=== PATIENT | male | born 1975 | race American Indian/Alaskan Native ===

== ENCOUNTER 2019-01-12 08:26 | Emergency (ER) | payer OTHER ==
[2019-01-12 09:29] LABS: Hematocrit 39.2 % (35.5-45.6); Hemoglobin 13.2 gm/dl (11.8-15.2); Mean Corpuscular HGB Conc 34 % (32-34); Mean Corpuscular Volume 88 fl (84-94); Platelet Count 247 K/mm3 (140-440); Red Blood Count 4.46 M/mm3 (3.65-5.03); Red Cell Distribution Width 14.5 % (13.2-15.2)
--- NOTE | 2019-01-12 09:41 | XRay Report ---
EXAM: XR CHEST 1V AP HISTORY: Chest Pain TECHNIQUE: AP CXR dated 01/12/2019 at 9:02 AM. COMPARISON: None available. FINDINGS: The heart size and mediastinum are within normal limits. The lung eaton and costophrenic angles are clear. There is no acute parenchymal infiltrate, pleural effusion, or pneumothorax seen. The visua lized bony structures are within normal limits. IMPRESSION: 1. No evidence for acute cardiopulmonary disease seen. This document is electronically signed by Katarzyna Ortiz MD., January 12 2019 09:39:22 AM ET
[2019-01-12 09:47] LABS: BUN/Creatinine Ratio 10; Blood Urea Nitrogen 24 mg/dL (9-20); Calcium 9.5 mg/dL (8.4-10.2); Hemolysis Index 9
[2019-01-12] MEDS ORDERED: SUBLIMAZE IV ONE (10:22)
[2019-01-12] MEDS ORDERED: ZOFRAN IV ONE (10:22)
[2019-01-12] MEDS ORDERED: NITRO-BID 2% TP ONE (10:22)
--- NOTE | 2019-01-12 10:28 | Emergency Department Report ---
HPI - General Chief Complaint: Chest Pain Time Seen by Provider: 01/12/19 10:09 - HPI HPI: Room 22 The patient is a 43-year-old male presenting with a chief complaint of chest pain headache and abdominal pain. The patient states he said chest pain is de scribed as sharp and constant in nature for approximately 1 week. Patient states he gets short of breath, diaphoretic expanse is nausea vomiting with this chest pain. The patient currently gets his chest pain score 10/10. Patient also complains of a diffuse headache for the past 3 days. Patient denies preceding trauma. Patient also complains of right upper quadrant abdominal pain for approximately 1 year. The patient has a history of alcoholism going through approximately 15-18 beers daily. Patient last consumed alcohol 3 days ago. The patient has a history of hypertension but has not been on medication for several years. The patient states he's never had a stress test or cardiac ca theterization Location: [See above] Duration: [See above] Quality: Sharp Severity: 10/10 Modifying factors: [see above] Context: [see above] Mode of transportation: [not driving] ED Past Medical Hx - Past Medical History Hx Hypertension: Yes - Surgical History Past Surgical History?: No - Family History Family history: no significant - Social History Smoking Status: Current Every Day Smoker (1/4 pack per day) Substance Use Type: None, Alcohol (15-18 beers daily) ED Review of Systems ROS: Stated complaint: CHEST PAIN/HEADACHE/HBP Other details as noted in HPI Constitutional: diaphoresis Eyes: denies: eye pain ENT: denies: throat pain Respiratory: shortness of breath Cardiovascular: chest pain Endocrine: no symptoms reported Gastrointestinal: abdominal pain, nausea, vomiting Genitourinary: denies: dysuria Musculoskeletal: denies: back pain Neurological: headache Physical Exam - Physical Exam Vital Signs: Vital Signs 01/12/19 08:34 Temperature 97.1 F L Pulse Rate 92 H Respiratory 18 Rate Blood Pressure 133/80 [Right] O2 Sat by Pulse 98 Oximetry Physical Exam: GENERAL: The patient is well-developed well-nourished male lying on stretcher not appearing to be in acute distress. [] HEENT: Normocephalic. Atraumatic. Extraocular motions are intact. Patient has moist mucous membranes. NECK: Supple. No meningitic signs are noted. Trachea midline CHEST/LUNGS: Clear to auscultation. There is no respiratory distress noted. HEART/CARDIOVASCULAR: Regular. There is no tachycardia. There is a 4/6 systolic murmur. ABDOMEN: Abdomen is soft, but diffusely tender. Patient has normal bowel sounds. There is no abdominal distention. SKIN: There is no rash. There is no edema. There is no diaphoresis. NEURO: The patient is awake, alert, and oriented. The patient is cooperative. The patient has no focal neurologic deficits. The patient has normal speech. Cranial nerves II through XII grossly intact, no drift MUSCULOSKELETAL: There is no evidence of acute injury. ED Course Vital Signs 01/12/19 08:34 Temperature 97.1 F L Pulse Rate 92 H Respiratory 18 Rate Blood Pressure 133/80 [Right] O2 Sat by Pulse 98 Oximetry ED Medical Decision Making - Lab Data Result diagrams: 01/12/19 09:10 01/12/19 09:10 Laboratory Tests 01/12/19 01/12/19 01/12/19 09:10 09:10 09:10 WBC 5.6 RBC 4.46 Hgb 13.2 Hct 39.2 MCV 88 MCH 30 MCHC 34 RDW 14.5 Plt Count 247 [place] % ([employer]) [employer] Flatbed Sodium 140 Potassium 3.2 L Chloride 95.7 L Carbon Dioxide 28 Anion Gap 20 BUN 24 H Creatinine 2.3 H Estimated GFR 37 BUN/Creatinine Ratio 10 Glucose 102 H Calcium 9.5 Total Bilirubin 0.80 AST 49 H ALT 36 Alkaline Phosphatase 75 Troponin T < 0.010 Total Protein 8.2 Albumin 4.7 Albumin/Globulin Ratio 1.3 - EKG Data -: EKG Interpreted by Me EKG shows normal: sinus rhythm Rate: normal - EKG Data When compared to previous EKG there are: previous EKG unavailable Interpretation: nonspecific ST-T wave mary - Radiology Data Radiology results: report reviewed (chest x-ray, CT head, CT abdomen and pelvis), image reviewed (chest x-ray, CT head, CT abdomen and pelvis) interpreted by me: Chest x-ray-no focal infiltrates, no pneumothorax Findings [facility] [address] [place] [address] XRay Report Signed Patient: LILIANE COLE MR# : [id number] : 1975 Acct:[id number] Age/Sex: 43 / M ADM Date: 01/12/19 Loc: ED Attending Dr: Ordering Physician: DARIUS JOHNSON MD Date of Service: 01/12/19 Procedure(s): XR chest 1V ap Accession Number(s): [id number] cc: DARIUS JOHNSON MD Fluoro Time In Minutes: EXAM: XR CHEST 1V AP HISTORY: Chest Pain TECHNIQUE: AP CXR dated 01/12/2019 at 9:02 AM. COMPARISON: None available. FINDINGS: The heart size and mediastinum are within normal limits. The lung eaton and costophrenic angles are clear. There is no acute parenchymal infiltrate, pleural effusion, or pneumothorax seen. The visualized bony structures are within normal limits. IMPRESSION: 1. No evidence for acute cardiopulmonary disease seen. This document is electronically signed by Noah Mccarthy MD., January 12 2019 09:39:22 AM ET Transcribed By: [facility] Dictated By: NOAH MCCARTHY Electronically Authenticated By: NOHA MCCARTHY Signed Date/Time: 01/12/19941 DD/ 6 TD/TT: 01/12/19906 Findings [facility] [address] [place] [address] Cat Scan Report Signed Patient: LILIANE COLE MR# : [id number] : 1975 Acct:[id number] Age/Sex: 43 / M ADM Date: 01/12/19 Loc: ED Attending Dr: Ordering Physician: ANDRIA GARY MD Date of Service: 01/12/19 Procedure(s): CT head/brain wo con Accession Number(s): [id number] cc: ANDRIA GARY MD PROCEDURE: CT HEAD/BRAIN WO CON TECHNIQUE: CT of the head was performed without intravenous contrast. HISTORY: headache COMPARISONS: None FINDINGS: The ventricles are normal in position and shape. The ventricles are nondilated. No intracranial hemorrhage, mass, mass effect or evidence of acute ischemic infarct. The basilar cisterns are patent. There is mild mucosal thickening of the maxillary sinuses. The mastoid air cells are clear. The orbits are intact. The calvarium is intact. No extracranial soft tissue swelling. IMPRESSION: No acute intracranial abnormality. Mild mucosal thickening of the maxillary sinuses is likely congestive or inflammatory. This document is electronically signed by Jolene Diaz., January 12 2019 11:36:35 AM ET Transcribed By: MG Dictated By: JOLENE WILLIAMSON MD Electronically Authenticated By: JOLENE WILLIAMSON MD Signed Date/Time: 01/12/19 1138 DD/ 1117 TD/TT: 01/12/19 1118 Findings [facility] [address] [place] [address] Cat Scan Report Signed Patient: LILIANE COLE MR# : [id number] : 1975 Acct:[id number] Age/Sex: 43 / M ADM Date: 01/12/19 Loc: ED Attending Dr: Ordering Physician: ANDRIA GARY MD Date of Service: 01/12/19 Procedure(s): CT abdomen pelvis wo con Accession Number(s): [id number] cc: ANDRIA GARY MD EXAM: CT ABDOMEN PELVIS WO CON HISTORY: diffuse abdominal pain TECHNIQUE: Spiral axial CT images are obtained through the abdomen and pelvis without the administration of intravenous contrast. Additional coronal and sagittal reformatted images are reconstructed. COMPARISON: None available. FINDINGS: GASTROINTESTINAL TRACT: Small hiatal hernia. There is diffuse colonic diverticulosis, especially severe in the ascending colon and sigmoid colon, without evidence for diverticulitis. No evidence for bowel herniation, bowel obstruction, or colitis. The appendix is not visualized, but there is no secondary sign of acute appendicitis seen. GENITOURINARY SYSTEM: The kidneys are unremarkable. There is no ureteral calculus or stigmata of obstructive uropathy. There is prostatomegaly (5.3 cm transverse) in keeping with BPH. There is a mildly thickened appearance of the urinary bladder wall which may represent sequela of incomplete bladder distention or chronic muscle wall hy pertrophy secondary to chronic partial outlet obstruction, but cannot rule out postinflammatory change or cystitis in the appropriate clinical setting. Clinical correlation is advised. CT ABDOMEN: Aortoiliac atherosclerotic disease, without aneurysm formation. The liver, spleen, pancreas, adrenal glands, gallbladder and inferior vena cava are within normal limits for a noncontrast CT scan. There is no intra-abdominal or retroperitoneal lymphadenopathy, free fluid, or free air seen. No abdominal herniation is noted. CT PELVIS: There is a nonspecific 2.4 cm CC by 1.9 cm AP by 2.3 cm transverse soft tissue density with central calcification seen in the right anterior lateral lower pelvis, at the mouth of the right inguinal canal, but uncertain etiology and clinical significance; DDX includes postsurgical scarring in the appropriate clinical setting; cannot rule out a soft tissue mass lesion. Correlation with postcontrast CT may be beneficial. The visualized bony structures are within normal limits. No pelvic sidewall or inguinal lymphadenopathy is seen. No inguinal herniation is noted. No free fluid or free air is seen. LUNG BASES: The lung bases are clear. There is an approximately 1.1 cm emphysematous bulla in the right middle lobe. IMPRESSION: 1. Prostatomegaly (5.3 cm transverse) in keeping with BPH; cannot rule out prostatitis in the appropriate clinical setting. 2. Thickened appearance of the urinary bladder wall which may represent sequela of incomplete bladder distention or chronic muscle wall hypertrophy secondary to chronic partial outlet obstruction; DDX includes postinflammatory change or cystitis in the appropriate clinical setting. Clinical correlation is advised. 3. No evidence for renal stone disease or obstructive uropathy. 4. Small hiatal hernia. 5. Diffuse colonic diverticulosis, especially severe in the ascending colon and sigmoid colon, without evidence for diverticulitis. 6. No evidence for acute appendicitis, bowel obstruction, colitis or diverticulitis seen. 7. Nonspecific 2.4 cm CC by 1.9 cm AP by 2.3 cm transverse soft tissue density with central calcification seen in the right anterior lateral lower pelvis, at the mouth of the right inguinal canal, but uncertain etiology and clinical significance; DDX includes postsurgical scarring in the appropriate clinical setting; cannot rule out a soft tissue mass lesion. Correlation with postcontrast CT may be beneficial. Axial image [id number]; coronal image 56-66. 8. No free fluid, free air or lymphadenopathy seen. This document is electronically signed by Noah Mccarthy MD., January 12 2019 11:42:05 AM ET Transcribed By: SHAUN Dictated By: NOAH MCCARTHY Electronically Authenticated By: NOAH MCCARTHY Signed Date/Time: 01/12/19 1144 DD/ 1123 TD/TT: 01/12/19 112 - Differential Diagnosis ACS, pericarditis, GERD, ICH, cirrhosis, Critical care attestation.: If time is entered above; I have spent that time in minutes in the direct care of this critically ill patient, excluding procedure time. ED Disposition Clinical Impression: Chest pain, Systolic murmur, Renal insufficiency Disposition: OP ADMIT IP TO THIS HOSP Is pt being admited?: Yes Does the pt Need Aspirin: No (renal insufficiency) Condition: Fair Instructions: Chest Pain (ED) Referrals: WYATT JARRELL MD [Primary Care Provider] - 3-5 Days Time of Disposition: 11:57 (hospitalist paged (Dr Hall))
--- NOTE | 2019-01-12 11:38 | Cat Scan Report ---
PROCEDURE: CT HEAD/BRAIN WO CON TECHNIQUE: CT of the head was performed without intravenous contrast. HISTORY: headache COMPARISONS: None FINDINGS: The ventricles are normal in position and shape. The ventricles are nondilated. No intracranial hemorrhage, mass, mass effect or evidence of acute ischemic infarct. The basilar cisterns are patent. There is mild mucosal thickening of the maxillary sinuses. The mastoid air cells are clear. The orbits are intact. The calvarium is intact. No extracranial soft tissue swelling. IMPRESSION: No acute intracranial abnormality. Mild mucosal thickening of the maxillary sinuses is likely congestive or inflammatory. This document is electronically signed by Edie Diaz., January 12 2019 11:36:35 AM ET
--- NOTE | 2019-01-12 11:44 | Cat Scan Report ---
EXAM: CT ABDOMEN PELVIS WO CON HISTORY: diffuse abdominal pain TECHNIQUE: Spiral axial CT images are obtained through the abdomen and pelvis without the administrat ion of intravenous contrast. Additional coronal and sagittal reformatted images are reconstructed. COMPARISON: None available. FINDINGS: GASTROINTESTINAL TRACT: Small hiatal hernia. There is diffuse colonic diverticulosis, especially yassine re in the ascending colon and sigmoid colon, without evidence for diverticulitis. No evidence for bow el herniation, bowel obstruction, or colitis. The appendix is not visualized, but there is no seconda ry sign of acute appendicitis seen. GENITOURINARY SYSTEM: The kidneys are unremarkable. There is no ureteral calculus or stigmata of obst ructive uropathy. There is prostatomegaly (5.3 cm transverse) in keeping with BPH. There is a mildly thickened appearance of the urinary bladder wall which may represent sequela of incomplete bladder di stention or chronic muscle wall hypertrophy secondary to chronic partial outlet obstruction, but néstor ot rule out postinflammatory change or cystitis in the appropriate clinical setting. Clinical correla tion is advised. CT ABDOMEN: Aortoiliac atherosclerotic disease, without aneurysm formation. The liver, spleen, pancr eas, adrenal glands, gallbladder and inferior vena cava are within normal limits for a noncontrast CT scan. There is no intra-abdominal or retroperitoneal lymphadenopathy, free fluid, or free air seen. No abdominal herniation is noted. CT PELVIS: There is a nonspecific 2.4 cm CC by 1.9 cm AP by 2.3 cm transverse soft tissue density wit h central calcification seen in the right anterior lateral lower pelvis, at the mouth of the right in guinal canal, but uncertain etiology and clinical significance; DDX includes postsurgical scarring in the appropriate clinical setting; cannot rule out a soft tissue mass lesion. Correlation with postco ntrast CT may be beneficial. The visualized bony structures are within normal limits. No pelvic side wall or inguinal lymphadenopathy is seen. No inguinal herniation is noted. No free fluid or free air is seen. LUNG BASES: The lung bases are clear. There is an approximately 1.1 cm emphysematous bulla in the rig ht middle lobe. IMPRESSION: 1. Prostatomegaly (5.3 cm transverse) in keeping with BPH; cannot rule out prostatitis in the approp riate clinical setting. 2. Thickened appearance of the urinary bladder wall which may represent sequela of incomplete bladde r distention or chronic muscle wall hypertrophy secondary to chronic partial outlet obstruction; DDX includes postinflammatory change or cystitis in the appropriate clinical setting. Clinical correlatio n is advised. 3. No evidence for renal stone disease or obstructive uropathy. 4. Small hiatal hernia. 5. Diffuse colonic diverticulosis, especially severe in the ascending colon and sigmoid colon, witho ut evidence for diverticulitis. 6. No evidence for acute appendicitis, bowel obstruction, colitis or diverticulitis seen. 7. Nonspecific 2.4 cm CC by 1.9 cm AP by 2.3 cm transverse soft tissue density with central calcific ation seen in the right anterior lateral lower pelvis, at the mouth of the right inguinal canal, but uncertain etiology and clinical significance; DDX includes postsurgical scarring in the appropriate c linical setting; cannot rule out a soft tissue mass lesion. Correlation with postcontrast CT may be b eneficial. Axial image [id number]; coronal image 56-66. 8. No free fluid, free air or lymphadenopathy seen. This document is electronically signed by Katarzyna Ortiz MD., January 12 2019 11:42:05 AM ET
[2019-01-12 11:52] LABS: Alanine Aminotransferase 36 units/L (7-56); Albumin 4.7 g/dL (3.9-5)
[2019-01-12 11:56] LABS: Bilirubin,Direct < 0.2 mg/dL (0-0.2)
--- NOTE | 2019-01-12 12:05 | History and Physical Report ---
Medications and Allergies Allergies Allergy/AdvReac Type Severity Reaction Status Date / Time No Known Allergies Allergy Unverified 01/12/19 08:32 Exam - Constitutional Vitals: Temp Pulse Resp BP Pulse Ox 97.1 F L 70 16 108/66 99 01/12/19 08:34 01/12/19 11:29 01/12/19 11:29 01/12/19 11:29 01/12/19 11:29 Results - Labs CBC & Chem 7: 01/12/19 09:10 01/12/19 09:10 Labs: Abnormal lab results 01/12/19 01/12/19 Range/Units 09:10 09:10 Potassium 3.2 L (3.6-5.0) mmol/L Chloride 95.7 L (98-107) mmol/L BUN 24 H (9-20) mg/dL Creatinine 2.3 H (0.8-1.5) mg/dL Glucose 102 H (75-100) mg/dL AST 49 H (5-40) units/L
[2019-01-12] MEDS ORDERED: FOLVITE 1 MG, INFUVITE 10 ML in NACL 0.9% 1000 ML 1,000 ML IV ONE (12:43)
[2019-01-12] MEDS ORDERED: NACL 0.45% 1000 ML 1,000 ML IV SCH (13:00)
[2019-01-12] MEDS ORDERED: K-DUR PO ONE ×2 (13:03→15:52)
[2019-01-12 13:10] LABS: Band Neutrophils # (Manual) 0.1 K/mm3; Basophils % (Manual) 0 % (0.0-1.8); Eosinophils % (Manual) 0 % (0.0-4.3); Total Cells Counted 100
[2019-01-12 13:11] LABS: Anisocytosis 1+; Platelet Estimate Consistent w Auto; Target Cells Few
--- NOTE | 2019-01-12 16:21 | Event Note ---
Date: 01/12/19 43 YO Male with ETOH Dependence, Nicotine Dependence presents to ED for evaluation of Chest Pain. Pt seen and evaluated in ED and treated IAW chest pain protocol. Pt underwent serial cardiac enzymes, ekg, telemetry which was negative for ischemia. Pt found to have chronic ETOH gastritis as well as elevated prerenal azotemia. Pt treated with IVF resuscitation therapy. Pt medically optimized and back to usual state of health. Pt discharged home and instructed to f/u pcp 1wk with BMP, as well as AA at discharge, and nephrology 1 wk. Pt counseled regarding ETOH cessation. GENERAL: The patient is well-developed well-nourished male lying on stretcher not appearing to be in acute distress. [] HEENT: Normocephalic. Atraumatic. Extraocular motions are intact. Patient has moist mucous membranes. NECK: Supple. No meningitic signs are noted. Trachea midline CHEST/LUNGS: Clear to auscultation. There is no respiratory distress noted. HEART/CARDIOVASCULAR: Regular. There is no tachycardia. ABDOMEN: Abdomen is soft,NT ND, +BS. Patient has normal bowel sounds. There is no abdominal distention. SKIN: There is no rash. There is no edema. There is no diaphoresis. NEURO: The patient is awake, alert, and oriented. The patient is cooperative. The patient has no focal neurologic deficits. The patient has normal speech. Cranial nerves II through XII grossly intact, no drift MUSCULOSKELETAL: There is no evidence of acute injury.
[2019-01-12 17:04] VITALS: BP 148/72
== END 2019-01-12 16:30 | disposition admitted as inpatient to this hospital (09) ==
LOC: ED 08:26
DX: R07.89 Other chest pain (principal); N28.9 Disorder of kidney and ureter, unspecified; I10 Essential (primary) hypertension; F17.200 Nicotine dependence, unspecified, uncomplicated; R11.2 Nausea with vomiting, unspecified
CPT/HCPCS: 36415; 70450; 71045; 74176; 80048; 80076; 83880; 84484; 85007; 85025; 93005; 93010; 96365; 96366; 96375; 99285; J2405; J3010; J7030